=== PATIENT | female | born 1940 | race Caucasian/White ===

== ENCOUNTER 2020-11-16 08:09 | Inpatient (IN) | payer MEDICARE, OTHER ==
[~2020-11-16] VITALS: Ht 165.1 cm; Wt 55.1 kg
[2020-11-16 08:56] LABS: Basophils # (auto) 0.1 10 ^3/uL (0-0.2); Eosinophils # (auto) 0 10 ^3/uL (0-0.8); Eosinophils % (auto) 0.3 % (0.0-7.0); Hemoglobin 13.3 g/dL (12.2-16.2); Lymphocytes # (auto) 2.6 10 ^3/uL (0.4-5.4); Lymphocytes % (auto) 22.3 % (10.0-50.0); Mean Corpuscular Hemoglobin 30.5 pg (28.0-32.0); Mean Corpuscular Hgb Conc. 33.4 g/dL (32.0-36.0); Mean Corpuscular Volume 91.3 fL (80.0-100.0); Monocytes # (auto) 1.1 10 ^3/uL (0-1.3); Monocytes % (auto) 9.7 % (0.0-12.0); Neutrophils # (auto) 7.7 10 ^3/uL (1.6-8.6); Neutrophils % (auto) 66.7 % (37.0-80.0); Red Blood Cells 4.38 10^6/uL (4.0-5.20); Red Cell Distribution Width 13.6 % (11.8-14.3); White Blood Cell 11.5 10^3/uL (4.4-10.8)
[2020-11-16 09:17] LABS: Albumin 2.8 g/dL (3.4-5.0); Calcium 9.3 mg/dL (8.5-10.1); Potassium 3.8 mmol/L (3.5-5.1)
[2020-11-16 09:21] LABS: BUN/Creatinine Ratio 18.8; Bilirubin, Total 0.8 mg/dL (0.2-1.0); Total Protein 6.8 g/dL (6.4-8.2)
[2020-11-16] MEDS ORDERED: NITROGLYCERIN 0.4 MG SL TAB SL PRN (09:45)
[2020-11-16] MEDS ORDERED: MORPHINE SULFATE INJECTION 2 MG/ML SYRG IV PRN ×2 (09:45→11:00)
[2020-11-16] MEDS: cefTRIAXone 1GM/50ML D5W 50 ML IV SCH ×2 (10:00→22:23)
[2020-11-16] MEDS: CHOLECALCIFEROL (VITD3) 2,000 UNIT CAP/TAB PO SCH (10:00)
[2020-11-16] MEDS: ZINC SULFATE 220mg CAP or TAB PO SCH (10:00)
[2020-11-16] MEDS: AZITHROMYCIN 500MG/ 250ML 250 ML IV SCH (10:00)
[2020-11-16] MEDS ORDERED: ONDANSETRON HCL 4 MG/2 ML VIAL IV PRN (11:00)
[2020-11-16 11:22] LABS: INR > 8.0 (0.9-1.15); Partial Thromboplastin Time 107.3 sec (23.6-33.0)
[2020-11-16 11:32] LABS: Urine Bacteria MANY /hpf (None Seen); Urine Blood TRACE /uL (Negative); Urine Hyaline Cast FEW /lpf (0 - 2); Urine Specific Gravity 1.011 (1.001-1.035); Urine WBC 60 /hpf (0 - 5); Urine WBC Clumps PRESENT /hpf (None Seen)
[2020-11-16] MEDS ORDERED: PHYTONADIONE (VIT K)10 MG/ML 1ML VIAL SUBCUT ONE (13:45)
[2020-11-16] MEDS ORDERED: phytonadione 10 MG in SODIUM CHL 0.9% 50 ML IV ONE (14:00)
[2020-11-16 18:02] VITALS: BP 154/58
[2020-11-16 18:17] VITALS: BP 136/62
[2020-11-16 20:19] VITALS: BP 142/65
[2020-11-16 22:22] VITALS: BP 142/65
[2020-11-16] MEDS: guaiFENesin-DM 100/10mg/5ml SYR PO PRN (23:39)
[2020-11-17] MEDS ORDERED: LOSA25TA38 PO ×2 (03:22)
[2020-11-17] MEDS ORDERED: LEVO50TA7 PO ×2 (03:22)
[2020-11-17] MEDS ORDERED: INFL100I IV ×2 (03:22)
[2020-11-17] MEDS ORDERED: ALEN70TA74 PO ×2 (03:22)
[2020-11-17] MEDS ORDERED: AMIO200T33 PO ×2 (03:22)
[2020-11-17] MEDS ORDERED: WARF4TAB33 PO (03:22)
[2020-11-17] MEDS ORDERED: CARV12.544 PO ×2 (03:22)
[2020-11-17 05:30] VITALS: BP 140/66
[2020-11-17 05:47] LABS: Basophils # (auto) 0 10 ^3/uL (0-0.2); Basophils % (auto) 0.4 % (0.0-2.0); Eosinophils # (auto) 0 10 ^3/uL (0-0.8); Eosinophils % (auto) 0.5 % (0.0-7.0); Hematocrit 31.7 % (36.0-46.0); Hemoglobin 11.2 g/dL (12.2-16.2); Lymphocytes # (auto) 2.6 10 ^3/uL (0.4-5.4); Lymphocytes % (auto) 27.3 % (10.0-50.0); Mean Corpuscular Hemoglobin 31.9 pg (28.0-32.0); Mean Corpuscular Hgb Conc. 35.2 g/dL (32.0-36.0); Mean Corpuscular Volume 90.5 fL (80.0-100.0); Monocytes # (auto) 1.3 10 ^3/uL (0-1.3); Neutrophils # (auto) 5.7 10 ^3/uL (1.6-8.6); Neutrophils % (auto) 58.8 % (37.0-80.0); Red Cell Distribution Width 13.3 % (11.8-14.3); White Blood Cell 9.7 10^3/uL (4.4-10.8)
[2020-11-17 05:59] LABS: Calcium 8.8 mg/dL (8.5-10.1); Potassium 3.8 mmol/L (3.5-5.1)
[2020-11-17 06:01] LABS: BUN/Creatinine Ratio 22.6
[2020-11-17 09:00] VITALS: BP 145/73
[2020-11-17] MEDS: PANTOPRAZOLE 40 MG/10 ML VIAL INJ IV SCH (09:59)
[2020-11-17] MEDS: cefTRIAXone 1GM/50ML D5W 50 ML IV SCH ×2 (09:59→22:24)
[2020-11-17] MEDS: ZINC SULFATE 220mg CAP or TAB PO SCH (09:59)
[2020-11-17] MEDS: CHOLECALCIFEROL (VITD3) 2,000 UNIT CAP/TAB PO SCH (09:59)
[2020-11-17] MEDS: AZITHROMYCIN 500MG/ 250ML 250 ML IV SCH (10:47)
[2020-11-17] MEDS: CARVEDILOL 12.5 MG TAB PO SCH ×2 (10:48→22:23)
[2020-11-17] MEDS: AMIODARONE HCL 200 MG TAB PO SCH (10:48)
[2020-11-17 13:00] VITALS: BP 144/72
[2020-11-17 14:51] LABS: INR 1.21 (0.9-1.15)
[2020-11-17 16:02] LABS: Partial Thromboplastin Time 33.5 sec (23.6-33.0)
[2020-11-17 16:41] VITALS: BP 140/63
[2020-11-17 20:00] VITALS: BP 144/72
[2020-11-17 22:00] VITALS: BP 144/71
[2020-11-18 05:00] VITALS: BP 137/54
[2020-11-18 05:53] LABS: Hematocrit 29.5 % (36.0-46.0); Hemoglobin 10.5 g/dL (12.2-16.2); Mean Corpuscular Hemoglobin 32.7 pg (28.0-32.0); Mean Corpuscular Hgb Conc. 35.5 g/dL (32.0-36.0); Mean Corpuscular Volume 92.2 fL (80.0-100.0); Red Cell Distribution Width 13.2 % (11.8-14.3)
[2020-11-18 06:01] LABS: INR 1.47 (0.9-1.15)
[2020-11-18 06:04] LABS: Calcium 8.7 mg/dL (8.5-10.1); Potassium 3.8 mmol/L (3.5-5.1)
[2020-11-18 06:05] LABS: Basophils % (manual) 0 (0.0-2.0); Blast Cells 0; Metamyelocytes % 0; Myelocytes % 0; Promyelocytes % 0; Reactive Lymphocytes 0
[2020-11-18 06:17] LABS: BUN/Creatinine Ratio 12.7
[2020-11-18 06:34] LABS: Band Neutrophils % (manual) 4; Eosinophils % (manual) 1 (0-7); Lymphocytes % (manual) 35 (10.0-50.0); Monocytes % (manual) 7 (0-12)
[2020-11-18] MEDS: AMIODARONE HCL 200 MG TAB PO SCH (08:40)
[2020-11-18] MEDS: cefTRIAXone 1GM/50ML D5W 50 ML IV SCH (08:40)
[2020-11-18] MEDS: PANTOPRAZOLE 40 MG/10 ML VIAL INJ IV SCH (08:40)
[2020-11-18] MEDS: ZINC SULFATE 220mg CAP or TAB PO SCH (08:40)
[2020-11-18] MEDS: CHOLECALCIFEROL (VITD3) 2,000 UNIT CAP/TAB PO SCH (08:41)
[2020-11-18] MEDS: CARVEDILOL 12.5 MG TAB PO SCH (08:41)
[2020-11-18 09:00] VITALS: BP 140/70
[2020-11-18] MEDS: guaiFENesin-DM 100/10mg/5ml SYR PO PRN (09:33)
[2020-11-18] MEDS: AZITHROMYCIN 500MG/ 250ML 250 ML IV SCH (09:33)
[2020-11-18] MEDS ORDERED: DOXYCYCLINE 100MG/250ML 250 ML IV SCH (11:15)
[2020-11-18 13:00] VITALS: BP 146/68
[2020-11-18 15:09] LABS: Hematocrit 32.7 % (36.0-46.0); Hemoglobin 11.1 g/dL (12.2-16.2); Mean Corpuscular Hemoglobin 31.5 pg (28.0-32.0); Mean Corpuscular Hgb Conc. 34.1 g/dL (32.0-36.0); Mean Corpuscular Volume 92.5 fL (80.0-100.0); Red Blood Cells 3.54 10^6/uL (4.0-5.20); Red Cell Distribution Width 13.3 % (11.8-14.3); White Blood Cell 7.9 10^3/uL (4.4-10.8)
[2020-11-18 15:16] LABS: Basophils % (manual) 0 (0.0-2.0); Blast Cells 0; Myelocytes % 0; Promyelocytes % 0; Reactive Lymphocytes 0
[2020-11-18 15:28] LABS: Albumin 2.2 g/dL (3.4-5.0); Calcium 8.9 mg/dL (8.5-10.1); Potassium 3.7 mmol/L (3.5-5.1)
[2020-11-18 15:32] LABS: BUN/Creatinine Ratio 11.4; Bilirubin, Total 0.7 mg/dL (0.2-1.0); Total Protein 5.6 g/dL (6.4-8.2)
[2020-11-18 16:30] LABS: Band Neutrophils % (manual) 2; Eosinophils % (manual) 1 (0-7); Lymphocytes % (manual) 30 (10.0-50.0); Metamyelocytes % 1; Monocytes % (manual) 11 (0-12)
[2020-11-18 17:00] VITALS: BP 138/66
== END 2020-11-18 18:28 | disposition home or self-care (01) | DRG 177 ==
LOC: ER 08:09 → TELE 09:38 → TELE-WESTW 19:40 → TELE-EAST 11-17 18:43
PROVIDERS: ADMIT Specialist; ATTEND Specialist
PROC: 30233K1 Transfusion of Nonautologous Frozen Plasma into Peripheral Vein, Percutaneous Approach (ICD-10-PCS; principal; 2020-11-16)
DX: U07.1 COVID-19 (principal); J12.82 Pneumonia due to coronavirus disease 2019; N39.0 Urinary tract infection, site not specified; J98.11 Atelectasis; D68.9 Coagulation defect, unspecified; I42.9 Cardiomyopathy, unspecified; K50.90 Crohn's disease, unspecified, without complications; M79.81 Nontraumatic hematoma of soft tissue; S30.1XXA Contusion of abdominal wall, initial encounter; S20.219A Contusion of unspecified front wall of thorax, initial encounter; M62.89 Other specified disorders of muscle; X58.XXXA Exposure to other specified factors, initial encounter; I10 Essential (primary) hypertension; I25.10 Atherosclerotic heart disease of native coronary artery without angina pectoris; I48.0 Paroxysmal atrial fibrillation; Z79.01 Long term (current) use of anticoagulants; Z95.810 Presence of automatic (implantable) cardiac defibrillator; Z79.899 Other long term (current) drug therapy; Y93.89 Activity, other specified; Y92.89 Other specified places as the place of occurrence of the external cause; Y99.8 Other external cause status
CPT/HCPCS: 36415; 71250; 74176; 80048; 80053; 81001; 83615; 85007; 85025; 85027; 85610; 85730; 86850; 86900; 86901; 87040; 87426; 93005; 93306; 96365; 96366; 96367; 96368; C9113; G0378; J0696; J3430; J3490

== ENCOUNTER 2020-11-20 13:11 | Emergency (ER) | payer MEDICARE, OTHER ==
[~2020-11-20] VITALS: Ht 165.1 cm; Wt 59.0 kg
[~2020-11-20 13:11] MED LIST: ALEN70TA74 PO; AMIO200T33 PO; CARV12.544 PO; INFL100I IV; LEVO50TA7 PO; LOSA25TA38 PO; WARF4TAB33 PO
[2020-11-20 13:13] VITALS: BP 114/39
== END 2020-11-20 14:00 | disposition left against medical advice (07) ==
LOC: ER 13:11
DX: Z76.0 Encounter for issue of repeat prescription (principal); Z53.21 Procedure and treatment not carried out due to patient leaving prior to being seen by health care provider